=== PATIENT | male | born 1985 | race Caucasian/White ===

== ENCOUNTER 2017-10-23 20:37 | Emergency (ER) | payer OTHER ==
[2017-10-23] MEDS ORDERED: ONDANSETRON (ODT) 4 MG TAB ODT (22:25)
[2017-10-23] MEDS ORDERED: IBUPROFEN 800 MG TAB PO (22:30)
[2017-10-23] MEDS: SOD CHLORIDE 0.9% 1,000 ML IV (22:46)
[2017-10-23] MEDS: ACETAMINOPHEN 500 MG TAB PO (22:48)
[2017-10-23] MEDS: ONDANSETRON 4 MG INJ IV (22:49)
[2017-10-23] MEDS: KETOROLAC 30 MG INJ IV (22:49)
[2017-10-23 23:25] LABS: ADD MAN DIFF? NO
[2017-10-23 23:32] LABS: BASOPHILS % 0.1 % (0.0-2.0); EOSINOPHILS % 0.3 % (0.0-7.0); HEMATOCRIT 48.5 % (42.0-52.0); HEMOGLOBIN 16.6 g/dl (14.0-18.0); LYMPHOCYTES # 0.9 10^3/ul (0.8-2.9); LYMPHOCYTES % 11.1 % (15.0-51.0); MEAN CORPUSCULAR HEMOGLOBIN 29.4 pg (29.0-33.0); MEAN CORPUSCULAR HGB CONC 34.2 g/dl (32.0-37.0); MEAN CORPUSCULAR VOLUME 85.8 fl (82.0-101.0); MEAN PLATELET VOLUME 9.7 fl (7.4-10.4); MONOCYTE # 0.6 10^3/ul (0.3-0.9); MONOCYTES % 8.1 % (0.0-11.0); NEUTROPHIL # 6.3 10^3/ul (1.6-7.5); NEUTROPHILS % 80.1 % (39.0-77.0); PLATELET COUNT 175 10^3/UL (140-415); RED BLOOD COUNT 5.65 10^6/ul (4.70-6.10); RED CELL DISTRIBUTION WIDTH 11.9 % (11.5-14.5)
[2017-10-23 23:32] LABS: WHITE BLOOD COUNT 7.8 10^3/ul (4.8-10.8)
[2017-10-24 00:07] LABS: ALANINE AMINOTRANSFERASE 58 IU/L (13-69); ALBUMIN 4.6 g/dl (3.3-4.9); ALBUMIN/GLOBULIN RATIO 1.27; ALKALINE PHOSPHATASE 72 IU/L (42-121); ANION GAP 16 (8-16); ASPARTATE AMINO TRANSFERASE 43 IU/L (15-46); BILIRUBIN,INDIRECT 0.3 mg/dl (0-1.1); BILIRUBIN,TOTAL 0.3 mg/dl (0.2-1.3); BLOOD UREA NITROGEN 17 mg/dl (7-20); CALCIUM 9.8 mg/dl (8.4-10.2); CARBON DIOXIDE 29 mmol/L (21-31); CHLORIDE 99 mmol/L (97-110); CREATININE 0.92 mg/dl (0.61-1.24); GLUCOSE 117 mg/dl (70-220); POTASSIUM 4.3 mmol/L (3.5-5.1); SODIUM 140 mmol/L (135-144); TOTAL PROTEIN 8.2 g/dl (6.1-8.1)
[2017-10-24 00:09] LABS: LIPASE 87 U/L (23-300)
[2017-10-24 01:04] LABS: ADD UMIC NO; UR ASCORBIC ACID 40 mg/dL (NEGATIVE); UR BILIRUBIN (Dip) NEGATIVE (NEGATIVE); UR BLOOD (Dip) NEGATIVE (NEGATIVE); UR CLARITY CLEAR (CLEAR); UR COLOR YELLOW (YELLOW); UR GLUCOSE (Dip) NEGATIVE (NEGATIVE); UR KETONES (Dip) NEGATIVE (NEGATIVE); UR LEUKOCYTE ESTERASE (Dip) NEGATIVE Leu/ul (NEGATIVE); UR NITRITE (Dip) NEGATIVE (NEGATIVE); UR SPECIFIC GRAVITY (Dip) 1.024 (1.003-1.030); UR TOTAL PROTEIN (Dip) NEGATIVE (NEGATIVE); UR UROBILINOGEN (Dip) 1+ mg/dL (NEGATIVE)
== END 2017-10-24 02:20 | disposition home or self-care (01) ==
LOC: FTE 20:37
DX: R50.9 Fever, unspecified (principal); R05 Cough; R11.10 Vomiting, unspecified; R19.7 Diarrhea, unspecified; R10.32 Left lower quadrant pain
CPT/HCPCS: 71045; 74176; 80053; 81003; 83690; 85025; 87400; 87880; 96374; 96375; 99285-25